=== PATIENT | female | born 1965 | race Caucasian/White ===

== ENCOUNTER 2017-08-04 04:46 | Inpatient (IN) | payer SELFPAY ==
[2017-08-04] MEDS ORDERED: Naloxone HCl 2 mg/2 ml Syringe ONE (04:53)
[2017-08-04] MEDS ORDERED: Norepinephrine 8 MG/0.9% NS 250 ML ONE (05:13)
[2017-08-04 05:33] LABS: Base Excess (BEa) -33.7 mEq/L (0 (+/-) 2.5); CO2 Tension 32.2 mmHg (35.0-45.0); pH, Arterial 6.59 (7.35-7.45)
[2017-08-04 05:34] LABS: Analyzer IN Cardio ER; Calcium, Ionized 1.1 mmol/L (1.12-1.30); Hematocrit-ABG 32.2 % (36.0-47.0); Puncture Site RBA
[2017-08-04 05:51] LABS: BHCG - Serum Negative (NEGATIVE); Hemoglobin 9.4 g/dL (12.0-16.0); Mean Corpuscular Hemoglobin 33.7 pg (27.0-31.0); Mean Platelet Volume 7.1 fL (7.4-10.4); Platelet Count 217 thou/uL (130-400); Pregs Control Background? CLEAR/WHITE (CLR/WHITE); Pregs Control Bar Appear? YES (CONTROL BAR); RBC Distribution Width 13.5 % (11.5-14.5); White Blood Cell (WBC) Count 19.3 thou/uL (4.8-10.8)
[2017-08-04 05:59] LABS: INR-International Normal Ratio 2.4; Prothrombin Time 27.5 SEC (12.0-14.7)
[2017-08-04 06:02] LABS: PTT 115.6 SEC (22.9-36.1)
[2017-08-04 06:08] LABS: Troponin I 0.063 ng/mL (< 0.028)
[2017-08-04 06:10] LABS: ALT (SGPT) 80 U/L (8-55); AST (SGOT) 255 U/L (5-34); Albumin 3.6 g/dL (3.5-5.0); Alcohol 155 mg/dL (Less than 10); Alkaline Phosphatase 105 U/L (40-150); BUN (Urea Nitrogen) 47 mg/dL (9.8-20.1); Bilirubin, Total 0.3 mg/dL (0.2-1.2); Calc. Creatinine Clearance 0 mL/min (70-130); Calcium 8.8 mg/dL (7.8-10.44); Chloride 98 mmol/L (98-107); Estimated GFR-MDRD 17; Globulin 2.3 g/dL (2.4-3.5); Glucose 123 mg/dL (70-105); Lipase 111 U/L (8-78); Potassium 4.8 mmol/L (3.5-5.1); Protein, Total 5.9 g/dL (6.0-8.3); Sodium 142 mmol/L (136-145)
[2017-08-04 06:13] LABS: Carbon Dioxide Less than 8 mmol/L (22-29)
[2017-08-04 06:20] LABS: Anisocytosis SLIGHT = 6-15 cells (100X) (0-5/hpf); Band 5 % (5-11); Hypochromia SLIGHT = 6-15 cells (100X) (0-5/hpf); Lymphocytes 36 % (21-51); MDiff Complete? YES; Metamyelocyte 2 % (0-0); Monocytes 7 % (0-10); Neutrophil 50 % (42-75); Nucleated RBC 2 % (0)
[2017-08-04] MEDS ORDERED: Fentanyl 20 MCG/ML 250 ML ONE (06:38)
[2017-08-04] MEDS ORDERED: Fentanyl 100 MCG/2 ML VIAL ONE (06:41)
[2017-08-04] MEDS ORDERED: CCU Electrolyte Replacement 1 EACH IVPB ONE (07:20)
--- NOTE | 2017-08-04 07:27 | PDOC.EVN ---
Event Note - Event Note Event Note: Patient seen and examined by me. History, exam, assessment and plan reviewed and discussed with Dr. Lenz. Agree with resident's documentation. This is a 51 year old woman with hsitory of chronic alcohol abuse and unknown other history who was brought in by EMS after being found down for an unknown amount time by family. Patient had apparently been binge drinking since . They noted she seemed to have trouble breathing and called EMS. Patient was found to be in cardiac arrest, ACLS protocol initiated. Received epi x3, bicarb, atropine, and dopamine. ROSC achieved after 12 minutes. Per EMS there was vomit around the patient on scene. PE: P75 BP 92/50 RR 28 99% T 83 U/O 20 mL from ER General- mildly obese WF in NAD; intubated Lungs- coarse rhonchi bilaterally CV- RRR, no murmur Abd- soft/nt/nd Ext- cool to touch; no edema Neuro- pupils fixed and dilated; no response to verbal, tactile, or painful stimuli Labs: WBC 19.3 Hgb 9.4 Hct 31.4 Platelet 214 PT 27.5 INR 2.4 PTT 115.6 Na 142 K 4.8 CL 98 CO2 <8 BUN 47 Cr 2.94 Gluc 123 AST 255 ALT 80 Lactic acid 29 ETOH 155 ABG 6.59/32/372/3 99% (TV 450, PS 10, PEEP 5, VR 14, FiO2 100%) CT brain- no hemorrhage CXR- diffuse infiltrates A/P: 1) S/p cardiac arrest with ROSC- currently on maximum pressors; no sedation ; severely acidotic. Repeat ABG pending; pulmonary consulted; continue supportive care pending further discussions with family. 2) Suspected aspiration pneumonia- continue IV antibiotics. 3) Hypotension- stable; continue pressors. 4) Alcohol abuse- continue to monitor 5) Severe metabolic acidosis- continue IVF; repeat lactic acid; monitor electrolytes 6) Hypothermia- continue bearhugger.
[2017-08-04] MEDS ORDERED: Magnesium Oxide 400 MG TAB PO PRN ×2 (07:52)
[2017-08-04] MEDS ORDERED: Potassium Chloride 40 MEQ in Premix Bag 1 BAG IVPB PRN (07:52)
[2017-08-04] MEDS ORDERED: Potassium Phosphate 9 MMOL in Sodium Chloride 0.9% 100 ML IVPB PRN (07:52)
[2017-08-04] MEDS ORDERED: Potassium Phosphate 15 MMOL in Sodium Chloride 0.9% 250 ML 250 ML IV PRN (07:52)
[2017-08-04] MEDS ORDERED: CCU ELECTROLYTE REPLACEMENT PROTOCOL FS PRN (07:52)
[2017-08-04] MEDS ORDERED: Potassium Chloride 20 MEQ TAB PO PRN (07:52)
[2017-08-04] MEDS ORDERED: Potassium Chloride 40 MEQ in Sodium Chloride 0.9% 250 ML 250 ML IVPB PRN (07:52)
[2017-08-04] MEDS ORDERED: Potassium Phosphate 12 MMOL in Sodium Chloride 0.9% 250 ML 250 ML IV PRN (07:52)
[2017-08-04] MEDS ORDERED: Magnesium 2 GM/NS 0.9% 100 ML 2 GM in Premix Bag 1 BAG IVPB PRN (07:52)
[2017-08-04 07:55] VITALS: BMI 20.1
[2017-08-04 08:09] LABS: Actual Bicarbonate (HCO3a) 3.5 mEq/L (22-26); CO2 Tension 31.6 mmHg (35.0-45.0); Hematocrit-ABG 36.4 % (36.0-47.0); Hemoglobin (Hb) 10.5 g/dL (12.0-16.0); O2 Tension (PaO2) 94.9 mmHg (80.0-100.0)
[2017-08-04 08:15] LABS: Base Excess (BEa) -32.5 mEq/L (0 (+/-) 2.5); Puncture Site LBA; pH, Arterial 6.66 (7.35-7.45)
--- NOTE | 2017-08-04 08:27 | RAD ---
CHEST ONE VIEW: History: Chronic alcoholic. Drinking a lot. Emesis. Patient coded. Comparison: None. FINDINGS: Portable supine chest radiograph demonstrates an endotracheal tube approximately 1.7 cm above the car [place]. Nasogastric tube extends beyond the diaphragm. Distal tip is not seen. Normal cardiac silhouette . The pulmonary vessels are slightly prominent. Patchy interstitial and alveolar opacities of the kerry g parenchyma. No pleural effusion. No pneumothorax on the supine projection. IMPRESSION: 1. Interstitial and alveolar opacities. 2. Endotracheal tube and nasogastric tube as above. POS: [facility]
[2017-08-04] MEDS ORDERED: Sodium Bicarb 50 MEQ/50 ML Abboject 8.4% SYRINGE IVP SCH (08:30)
--- NOTE | 2017-08-04 08:34 | CT ---
PRELIMINARY REPORT/[facility]/EMERGENCY AFTER HOURS PROCEDURE: EXAM: CT Head Without Intravenous Contrast CLINICAL HISTORY: 51 years old, female; Signs and symptoms; Altered mental status/memory loss; Other: Unkown; Additiona l info: Additional history obtained from ems, f51 presents to ed S/P rosc. Per family, pt is chronic alcoholic and has been drinking a lot recently. Unknown HX otherwise. Ems reports there was vomit elizabet rywhere upon arrival, they suspect aspiration. Unknown down time. Ems coded her for 12 minutes total. Intubated with leland tube. 3 rounds of epi, 50 bicarb, atropine, dopamine. Not sedated. Bg 120s, las t BP 60s systolic. TECHNIQUE: Axial computed tomography images of the head/brain without intravenous contrast. COMPARISON: No relevant prior studies available. FINDINGS: Brain: Mild volume loss No hemorrhage. No significant white matter disease. No edema. Ventricles: Unremarkable. No ventriculomegaly. Bones/joints: Nasal bones/nasal septal fractures of indeterminate age Soft tissues: Unremarkable. Sinuses: Air-fluid levels in the paranasal sinuses Mastoid air cells: Unremarkable as visualized. No mastoid effusion. IMPRESSION: Pansinusitis Age indeterminate nasal bone/nasal septal fractures No intracranial hemorrhage.Please see discussion above. Thank you for allowing us to participate in the care of your patient. Dictated and Authenticated by: David Song MD 08/04/2017 6:36 AM Central Time ([place] & [place]) CT BRAIN WITHOUT CONTRAST FINAL REPORT FINDINGS/IMPRESSION: I agree with the preliminary report given by Dr. David Song of [facility]. POS: [facility]
--- NOTE | 2017-08-04 08:36 | CT ---
PRELIMINARY REPORT/[facility]/EMERGENCY AFTER HOURS PROCEDURE: EXAM: CT Cervical Spine Without Intravenous Contrast CLINICAL HISTORY: 51 years old, female; Injury or trauma; Fall; Initial encounter; Additional info: Additional history obtained from ems, f51 presents to ed S/P rosc. Per family, pt is chronic alcoholic and has been amalia ha a lot recently. Unknown HX otherwise. Ems reports there was vomit everywhere upon arrival, they suspect aspiration. Unknown down time. Ems coded her for 12 minutes total. Intubated with leland tube. 3 rounds of epi, 50 bicarb, atropine, dopamine. Not sedated. Bg 120s, last BP 60s systolic. TECHNIQUE: Axial computed tomography images of the cervical spine without intravenous contrast. COMPARISON: No relevant prior studies available. FINDINGS: Vertebrae: Loss of vertebral body height, presumed degenerative No acute fracture. Discs/spinal canal/neural foramina: No acute findings. Central canal and foraminal stenosis most pron ounced at C5-C6 Soft tissues: Limited evaluation of the prevertebral soft tissues are secondary to nasogastric intuba tion. Lung apices: Nodular opacities in the right upper lobe Endotracheal tube tip just above the daniel on the evaluation manager film IMPRESSION: No definite acute cervical fracture Nodular opacities in the right upper lobe which may represent pulmonary contusions Endotracheal tube tip just above the daniel on the evaluation manager film. Recommend withdrawing 3 cm Thank you for allowing us to participate in the care of your patient. Dictated and Authenticated by: David Song MD 08/04/2017 6:33 AM Central Time ([place] & [place]) CT CERVICAL SPINE WITHOUT CONTRAST: FINAL REPORT FINDINGS/IMPRESSION: I agree with the preliminary report given by Dr. David Song of [facility]. POS: [facility]
[2017-08-04] MEDS: Piperacillin/Tazobactam 3.375 GM in Sodium Chloride 0.9% 100 ML IVPB SCH ×2 (08:55→13:21)
[2017-08-04] MEDS ORDERED: Pantoprazole 40 MG VIAL IVP SCH (09:00)
[2017-08-04] MEDS: DOPamine 400 MG/D5W 250 ML 250 ML IVPB SCH ×2 (09:04→15:22)
[2017-08-04] MEDS: Norepinephrine 8 MG/0.9% NS 250 ML IVPB PRN ×2 (09:04→13:25)
--- NOTE | 2017-08-04 09:44 | CON ---
DATE OF CONSULTATION: 08/04/2017 HISTORY: Judy Michaels is a 51-year-old female who is in the ICU intubated on the vent. Histo ry is obtained from talking to the patient's sister and the mother who are at the bedside. David hatch information is obtained from talking to the doctor leasing sales consultant. Mother and sister says that the patien camille has longstanding history of heavy alcohol intake since 2007, drinking excessively. She has not bee n working since 2007. She has had multiple ER visits, but never has a known primary care physician. This morning apparently she was found down at home. Her mother said she was apparently trying to cr awl up in the bed when she found her unresponsive, 911 was called in. She received 3 vials of epinep hrine, 50 bicarbonate, atropine and dopamine. She is now on dopamine and Levophed both with her bloo d pressure systolic of 90. Additionally history is that she did smokes excessively a pack a day. PAST MEDICAL HISTORY: Pertinent for chronic sinus issues. History of depression. PAST SURGICAL HISTORY: Included breast implant, sinus surgery, multiple. CHRONIC MEDICATIONS: None. ALLERGIES: Apparently none. SOCIAL/FAMLY HISTORY: Otherwise, as noted. 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 REVIEW OF SYSTEMS: Unobtainable. PHYSICAL EXAMINATION: HEENT: Pupils are fixed and dilated. VITAL SIGNS: Pulse is 90, blood pressure 95/50, temperature 82. CHEST: Chest revealed bilateral rhonchi and crackles. CARDIAC: Sinus tachycardia. ABDOMEN: Soft. LABORATORY: White count 19,000, H&H 9 and 31, platelet count 217, 50 segs, 5 bands. INR is 2.4, PTT 115, pO2 was 94, pCO2 30, pH 6.6. Electrolytes are normal. Creatinine is 2.94. IMPRESSION: 1. Severe anoxic injury. 2. Status post CPR in the ER with multiple drugs given. 3. Hypertension. 4. Aspiration pneumonia. PLAN: I agree with empiric antibiotics, empiric steroids, neb treatments, supportive care, pressors. Family wants to make her a DNR. I agree. Prognosis is grave. If she survives the next 24 hours will try and do EEG and a brain scan. Critical care time 45 minutes with the patient at the bedside discussing with the patient's family.
[2017-08-04 10:21] LABS: Hemoglobin 11.3 g/dL (12.0-16.0); Mean Corpuscular HGB CONC 32.7 g/dL (32.0-36.0); Mean Corpuscular Hemoglobin 35.2 pg (27.0-31.0); Platelet Count 242 thou/uL (130-400); RBC Distribution Width 13.7 % (11.5-14.5); Red Blood Cell (RBC) Count 3.22 mill/uL (4.20-5.40); White Blood Cell (WBC) Count 14.8 thou/uL (4.8-10.8)
--- NOTE | 2017-08-04 10:28 | HP-2 ---
CODE STATUS: FULL. PRIMARY CARE PHYSICIAN: City call. ATTENDING: Dr. Lachelle Ferrer RESIDENT: Dr. Mahnaz Lenz CHIEF COMPLAINT: Cardiac arrest status post ROSC. HISTORY OF PRESENT ILLNESS: This is a 51-year-old female that presents to the emergency department a fter being resuscitated in the field. Per family, the patient is a chronic alcoholic and has been dr inking an excessive amount over the course of the past few days. EMS reports there was vomit everywh ere upon arrival and they suspect aspiration. It is uncertain how long the patient was down prior to initiating CPR. EMS coded the patient for 12 minutes total. She was intubated in the field with a Mario tube, given 3 rounds of epinephrine, 50 of bicarbonate, atropine and given dopamine as well. In the emergency room, she was bolused with 4 liters of normal saline, given 2 amps of bicarbonate and placed on a dopamine and Levophed drip. She was also given Narcan 2 mg IM. PAST MEDICAL HISTORY: Unable to verify. The family is able to report that she is a known alcoholic. However, she does not go to the doctor and they are uncertain of any other medical [facility]. PAST SURGICAL HISTORY: Unable to verify. ALLERGIES: Unable to verify. MEDICATIONS: The family reports that she was not on any medications; however unable to verify at thi s time. FAMILY HISTORY: Noncontributory. SOCIAL HISTORY: The family reports the patient is a known tobacco user and has had a history of alco hol abuse. She has been drinking again recently. REVIEW OF SYSTEMS: Unable to obtain secondary to the patient being unresponsive. PHYSICAL EXAMINATION: VITAL SIGNS: Blood pressure 104/57, pulse 78, respiratory rate 28, T-max 84.9, pulse ox 100% on vent ilator. Current weight 68 kilograms. GENERAL: The patient is comatose and unresponsive. EYES: Eyes dilated and fixed. Pupils unresponsive to light. CARDIOVASCULAR: Regular rate and rhythm. Radial and pedal pulses are thready. RESPIRATORY: The patient is on ventilator, satting 100%. Breath sounds are rhonchorous throughout. SKIN: Skin is cool to touch. No cyanosis. No apparent lesions. ABDOMEN: Soft. EXTREMITIES: No cyanosis or edema. MUSCULOSKELETAL: Structure is within normal limits. Unable to assess muscle strength secondary to p atient being unresponsive and sedated. NEURO: Unable to assess neurological status secondary to patient being sedated and unresponsive. Sh e does have fixed and dilated pupils that are unresponsive to light. LABORATORY DATA: White blood cell count 19.3, hemoglobin 9.4, hematocrit 31.4, platelet 277. Sodium 142, potassium 4.8, chloride 98, bicarbonate less than 8, BUN 47, creatinine 2.94, glucose 123 , calcium 8.8, total protein 5.9, albumin 3.6, total bilirubin 0.3, AST 255, ALT 80, alkaline phospha tase 105. CK-MB 13, troponin 0.063. Lipase 111. PT 27.5, PTT 115.6, INR 2.4. ETOH 155. ABG shows pH of 6.59, pCO2 of 32.2, and a PaO2 of 372. Beta hCG negative. ASSESSMENT AND PLAN: This is a 51-year-old female, known alcoholic found to be in cardiac arrest sta tus post ROSC. 1. Cardiac arrest status post ROSC. The patient found down at home by mother. She is an alcohol ab user and recently started drinking again. CPR was performed in the field for 12 minutes. The patien t was placed on pressure support in the emergency department to include dopamine and Levophed drip. Pulmonology was consulted since the patient came in hypothermic. A Kaushik Hugger was placed in effort to keep core temperature between 91 and 92 degrees Fahrenheit. The patient was placed on normal sali ne at 150 mL per hour with bicarbonate. 2. Aspiration pneumonia. The patient was placed on Zosyn in an attempt to treat aspiration pneumoni a. EMS did report she was surrounded by emesis in the field. 3. Hypothermia. Core temperature was 88 degrees Fahrenheit on presentation and dropped to 84 degree s. A Kaushik Hugger was placed with a goal to keep her temperature 91 to 92 degrees Fahrenheit. 4. Hypocoagulability. We are pending CT at this time. Will assess for any signs of bleeding. 5. Lactic acidosis likely secondary to cardiac arrest leading to poor perfusion. The patient was alli lused 4 liters in the emergency department and started on normal saline at 150 mL per hour. DISPOSITION AND LENGTH OF HOSPITAL STAY: 5 days. Symptomatic medications will be provided. History and physical exam as well as management discussed with Dr. Ferrer.
[2017-08-04 11:05] LABS: Troponin I 0.212 ng/mL (< 0.028)
[2017-08-04 11:11] LABS: CKMB 46.2 ng/mL (0-6.6)
[2017-08-04 11:13] LABS: Lactic Acid Greater than 13.4 mmol/L (0.5-2.2)
[2017-08-04 11:37] LABS: Band 11 % (5-11); Lymphocytes 60 % (21-51); Metamyelocyte 5 % (0-0); Monocytes 3 % (0-10); Myelocyte 3 % (0-0); Reactive Lymphocytes 1 % (0-10); Vacuoles SLIGHT
[2017-08-04 11:38] LABS: Neutrophil 17 % (42-75)
[2017-08-04 13:01] LABS: ALT (SGPT) 253 U/L (8-55); AST (SGOT) 1173 U/L (5-34); Albumin 3.1 g/dL (3.5-5.0); Alkaline Phosphatase 124 U/L (40-150); BUN (Urea Nitrogen) 41 mg/dL (9.8-20.1); Bilirubin, Total 0.7 mg/dL (0.2-1.2); Calc. Creatinine Clearance 24 mL/min (70-130); Calcium 7.5 mg/dL (7.8-10.44); Carbon Dioxide Less than 8 mmol/L (22-29); Chloride 106 mmol/L (98-107); Estimated GFR-MDRD 21; Globulin 2.3 g/dL (2.4-3.5); Glucose 84 mg/dL (70-105); Potassium 3.7 mmol/L (3.5-5.1); Protein, Total 5.4 g/dL (6.0-8.3); Sodium 151 mmol/L (136-145)
[2017-08-04 15:19] VITALS: BP 52/32
[2017-08-04 15:58] VITALS: TEMP 97.4
[2017-08-04] MEDS ORDERED: Sodium Bicarb 50 MEQ/50 ML Abboject 8.4% SYRINGE ONE (16:44)
[2017-08-05] MEDS ORDERED: FLU VACC QS2017-18 36 mo. & older 0.5 ML SYRINGE IM ONE (08:00)
--- NOTE | 2017-08-07 13:27 | EKG ---
Test Reason : ROSC Blood Pressure : / mmHG Vent. Rate : 074 BPM Atrial Rate : 074 BPM P-R Int : 160 ms QRS Dur : 140 ms QT Int : 506 ms P-R-T Axes : 062 074 266 degrees QTc Int : 561 ms Normal sinus rhythm with sinus arrhythmia Right bundle branch block T wave abnormality, consider inferolateral ischemia Abnormal ECG Confirmed by CELIA TRUJILLO ([id number]), editor managing newspaper MARQUIS PENN ([id number]) on 08/07/2017 1:27:28 PM Referred By: CASSANDRA Confirmed By:CELIA TRUJILLO
== END 2017-08-04 16:03 | disposition expired | DRG 208 ==
LOC: ERS 04:46 → CCU 05:45
PROVIDERS: ADMIT Family Medicine; ATTEND Family Medicine
PROC: 5A1935Z Respiratory Ventilation, Less than 24 Consecutive Hours (ICD-10-PCS; principal; 2017-08-04)
PROC: 0BH17EZ Insertion of Endotracheal Airway into Trachea, Via Natural or Artificial Opening (ICD-10-PCS; 2017-08-04)
PROC: 5A12012 Performance of Cardiac Output, Single, Manual (ICD-10-PCS; 2017-08-04)
DX: J69.0 Pneumonitis due to inhalation of food and vomit (principal); I46.9 Cardiac arrest, cause unspecified; G93.1 Anoxic brain damage, not elsewhere classified; J80 Acute respiratory distress syndrome; T68.XXXA Hypothermia, initial encounter; E87.2 Acidosis; D68.59 Other primary thrombophilia; F10.20 Alcohol dependence, uncomplicated; Z66 Do not resuscitate; Y90.6 Blood alcohol level of 120-199 mg/100 ml
CPT/HCPCS: 31500; 36415; 36416; 36556; 51702; 70450; 71010; 72125; 80053; 80307; 82553; 82805; 83605; 83690; 84484; 84703; 85025; 85610; 85730; 87040; 93005; 94002; 94640; 96365; 96366; 96368; 96372; 96375; 96376; 99292; C9113; J1265; J2310; J2543; J2920; J3010; J7050